=== PATIENT | male | born 1985 | race Caucasian/White ===

== ENCOUNTER 2017-12-21 20:32 | Emergency (ER) | payer OTHER ==
[~2017-12-21] VITALS: Ht 180.3 cm; Wt 106.6 kg
== END 2017-12-21 22:32 | disposition home or self-care (01) ==
LOC: ER 20:32
DX: T78.1XXA Other adverse food reactions, not elsewhere classified, initial encounter (principal); K12.1 Other forms of stomatitis

== ENCOUNTER 2017-12-22 08:45 | Emergency (ER) | payer OTHER ==
[~2017-12-22] VITALS: Ht 177.8 cm; Wt 106.6 kg
== END 2017-12-22 14:19 | disposition home or self-care (01) ==
LOC: ER 08:45
DX: T78.1XXD Other adverse food reactions, not elsewhere classified, subsequent encounter (principal); R21 Rash and other nonspecific skin eruption

== ENCOUNTER 2023-07-31 15:07 | Emergency (ER) | payer OTHER ==
[~2023-07-31] VITALS: Ht 177.8 cm; Wt 130.2 kg
[2023-07-31] MEDS ORDERED: KETOROLAC TROMETHAMINE 60 MG VIAL IM ONE (17:30)
[2023-07-31] MEDS ORDERED: ADVIL DUAL ACT1 EACH PO (18:44)
== END 2023-07-31 18:49 ==
LOC: ER 15:07
DX: S90.02XA Contusion of left ankle, initial encounter (principal); S90.32XA Contusion of left foot, initial encounter; S50.11XA Contusion of right forearm, initial encounter; S20.213A Contusion of bilateral front wall of thorax, initial encounter; S60.211A Contusion of right wrist, initial encounter; S60.221A Contusion of right hand, initial encounter; W18.39XA Other fall on same level, initial encounter; Y93.89 Activity, other specified; Y92.89 Other specified places as the place of occurrence of the external cause; Y99.8 Other external cause status

== ENCOUNTER 2024-03-19 22:59 | Emergency (ER) | payer OTHER ==
[~2024-03-19] VITALS: Ht 180.3 cm; Wt 131.5 kg
[~2024-03-19 22:59] MED LIST: ADVIL DUAL ACT1 EACH PO; DICLOFENAC POTA50 MG PO; METHOCARBAMOL500 MG PO
[2024-03-19] MEDS ORDERED: CLINDAMYCIN PHOSPHATE 150 MG/ML (600mg) IM STA (23:27)
== END 2024-03-19 23:34 | disposition home or self-care (01) ==
LOC: ER 23:01
DX: L03.113 Cellulitis of right upper limb (principal); Z91.013 Allergy to seafood

== ENCOUNTER 2024-09-10 17:23 | Emergency (ER) | payer OTHER ==
[~2024-09-10] VITALS: Ht 180.3 cm; Wt 116.6 kg
[~2024-09-10 17:23] MED LIST changes: +METHOCARBAMOL750 MG PO; +NABUMETONE750 MG PO
[2024-09-10] MEDS ORDERED: 0.9 % SODIUM CHLORIDE 1,000 ML IV STA (18:33)
[2024-09-10] MEDS ORDERED: FAMOTIDINE/PF 20 MG/2 ML VIAL IV ONE (18:45)
[2024-09-10] MEDS ORDERED: METOCLOPRAMIDE HCL 5 MG/ML VIAL IV ONE (18:45)
[2024-09-10] MEDS ORDERED: METOCLOPRAMIDE HCL 5 MG/ML VIAL ONE (20:21)
[2024-09-10] MEDS ORDERED: FAMOTIDINE/PF 20 MG/2 ML VIAL ONE (20:22)
[2024-09-10 21:20] LABS: HEMATOCRIT 45.6 % (39.0-48.0); HEMOGLOBIN 15.1 g/dL (13-16.00); MEAN CORPUSCULAR HEMOGLOBIN 25.6 pg (27.00-32.0); MEAN CORPUSCULAR HGB CONC 33.2 g/dl (32.0-36.0); RED BLOOD COUNT 5.92 M/uL (4.00-6.00); RED CELL DISTRIBUTION WIDTH 13.8 % (11.5-14.5)
[2024-09-10 21:21] LABS: PLATELET COUNT 74 K/uL (150-450)
[2024-09-10 21:40] LABS: ALBUMIN 4.2 gm/dL (3.4-5.0); BILIRUBIN TOTAL 0.8 mg/dL (0.3-1.2); CALCIUM 9.6 mg/dL (8.5-10.1); CREATININE SERUM 0.78 mg/dL (0.70-1.30); GFR 110.24; GLOBULINA 4.4 G/DL (2.4-3.5); POTASSIUM 4.18 mEq/L (3.5-5.1); TOTAL PROTEIN 8.6 gm/dL (6.4-8.2)
[2024-09-10 22:03] LABS: COVID-19 AG NEGATIVE (NEGATIVE)
[2024-09-10 22:10] LABS: INFLUENZA A AG NEGATIVE (NEGATIVE)
== END 2024-09-10 23:18 | disposition home or self-care (01) ==
LOC: ER 17:23
PROVIDERS: Emergency Medicine
DX: K52.89 Other specified noninfective gastroenteritis and colitis (principal); Z91.013 Allergy to seafood; Z20.822 Contact with and (suspected) exposure to COVID-19

== ENCOUNTER 2024-10-15 12:43 | Emergency (ER) | payer OTHER ==
[~2024-10-15] VITALS: Ht 177.8 cm; Wt 89.8 kg
[2024-10-15 13:12] VITALS: BP 138/80; O2SAT 99
[2024-10-15] MEDS ORDERED: CEFTRIAXONE SODIUM 1,000 MG VIAL IM STA (15:17)
[2024-10-15] MEDS ORDERED: CEFUROXIME500 MG PO (15:23)
[2024-10-15] MEDS ORDERED: CEFTRIAXONE SODIUM 1,000 MG VIAL ONE (16:02)
[2024-10-15] MEDS ORDERED: LIDOCAINE HCL/MPF 1% 5ML VIAL IJ ONE (16:03)
== END 2024-10-15 20:20 | disposition home or self-care (01) ==
LOC: ER 13:03
DX: L03.116 Cellulitis of left lower limb (principal); Z91.013 Allergy to seafood

== ENCOUNTER → 2024-11-19 | Emergency (ER) | payer OTHER ==
[~2024-11-19] VITALS: Ht 177.8 cm; Wt 108.0 kg
[~2024-11-19] MED LIST changes: +0.9 % SODIUM CHLORIDE 1,000 ML IV SCH; +CEFUROXIME500 MG PO; +FAMOtidine 10 MG/ML (4ML VIAL) IV ONE; +KEPPRA100 MG/1 M; +KETOROLAC TROMETHAMINE 60 MG VIAL IM ONE; +TRAMADOL HCL 50 MG TABLET PO ONE
[2024-11-19 11:27] LABS: BASO % 0.6 % (0.1-1.2); EOS # 0.20 (0.04-0.54); EOS % 1.4 % (0.7-7.0); LYMPH # 2.34 (1.18-3.74); LYMPH % 16.6 % (19.3-53.1); MEAN PLATELET VOLUME 11.80 fl (9.4-12.4); MONO # 0.78 (0.24-0.82); MONO % 5.5 % (4.7-12.5); NEUT # 10.61 (1.56-6.13); NEUT % 75.2 % (34.0-71.1); RED CELL DISTRIBUTION WIDTH 14.2 % (11.6-14.4)
[2024-11-19 11:53] LABS: INR 1.15
[2024-11-19 11:58] LABS: ALT/SGPT 37.0 U/L (12-78); AST/SGOT 47.0 U/L (15-37); BILIRUBIN TOTAL 3.13 mg/dL (0.3-1.2); BUN CREA RATIO 18.0 (7.0-25.0); CREATININE SERUM 0.99 mg/dL (0.70-1.30); GFR 83.72; GLOBULINA 4.3 G/DL (2.4-3.5); GLUCOSE FASTING 111.0 mg/dL (65-100); OSMOLALITY SERUM 288.0 MOSM/KG (275-295)
== END | disposition designated cancer center or children's hospital (05) ==
LOC: ER 08:43
PROVIDERS: Preventive Medicine Public Health & General Preventive Medicine
DX: M25.519 Pain in unspecified shoulder (principal); I82.623 Acute embolism and thrombosis of deep veins of upper extremity, bilateral; G40.89 Other seizures; Z91.013 Allergy to seafood

== ENCOUNTER 2024-12-01 22:35 | Emergency (ER) | payer OTHER ==
[~2024-12-01] VITALS: Ht 177.8 cm; Wt 104.3 kg
[~2024-12-01 22:35] MED LIST changes: -0.9 % SODIUM CHLORIDE 1,000 ML IV SCH; -FAMOtidine 10 MG/ML (4ML VIAL) IV ONE; -KETOROLAC TROMETHAMINE 60 MG VIAL IM ONE; -TRAMADOL HCL 50 MG TABLET PO ONE
[2024-12-01] MEDS ORDERED: 0.9 % SODIUM CHLORIDE 1,000 ML IV STA (23:10)
[2024-12-02 00:56] LABS: BASO % 0.2 % (0.1-1.2); EOS # 0.00 (0.04-0.54); EOS % 0.0 % (0.7-7.0); LYMPH # 0.71 (1.18-3.74); LYMPH % 4.9 % (19.3-53.1); MEAN PLATELET VOLUME 11.90 fl (9.4-12.4); MONO # 0.64 (0.24-0.82); MONO % 4.4 % (4.7-12.5); NEUT # 13.11 (1.56-6.13); NEUT % 89.9 % (34.0-71.1); RED CELL DISTRIBUTION WIDTH 13.5 % (11.6-14.4)
[2024-12-02 01:54] LABS: BUN CREA RATIO 17.0 (7.0-25.0); CREATININE SERUM 0.58 mg/dL (0.70-1.30); GFR 155.17; GLUCOSE FASTING 149.0 mg/dL (65-100); OSMOLALITY SERUM 276.0 MOSM/KG (275-295)
[2024-12-02 02:51] LABS: URINE APPEARANCE Turbid; URINE BILIRRUBIN Negative (NEGATIVE); URINE BLOOD Negative; URINE COLOR Yellow; URINE GLUCOSE Negative (NEGATIVE); URINE KETONE 15 (NEGATIVE); URINE LEUKOCYTE Negative; URINE NITRATE Negative; URINE PROTEIN 30 (NEGATIVE); URINE UROBILINOGEN 1.0 E.U./dl
[2024-12-02 02:54] LABS: URINE EPITHELIAL CELLS 5.9 uL (0.0-38.8); URINE RBC 18.3 uL (0.0-20.8); URINE WBC 7.9 uL (0.0-23.2)
[2024-12-02 03:26] LABS: URINE BACTERIA 3.5 uL (0.0-1933); URINE CAST 0.58 uL (0.0-1.40); URINE CRYSTALS MANY /HPF; URINE MUCUS SCANT; URINE SPERM FEW
[2024-12-02] MEDS ORDERED: HYOSCYAMINE SULFATE 0.125 MG TAB.SUBL ONE (03:58)
[2024-12-02] MEDS ORDERED: LACTOBACILLUS ACIDOPHILUS 1 CAP CAP PO STA (03:58)
[2024-12-02] MEDS ORDERED: LACTOBACILLUS ACIDOPHILUS 1 CAP CAP PO ONE (03:58)
[2024-12-02] MEDS ORDERED: HYOSCYAMINE SULFATE 0.125 MG TAB.SUBL SL ONE (04:00)
[2024-12-02] MEDS ORDERED: INTESTINEX680 M1 PO (04:37)
[2024-12-02] MEDS ORDERED: LEVSIN/SL0.125 MG SL (04:37)
[2024-12-02 04:42] VITALS: BP 138/72; O2SAT 98
== END 2024-12-02 04:42 ==
LOC: ER 22:35
PROVIDERS: General Practice
DX: R19.7 Diarrhea, unspecified (principal)

== ENCOUNTER 2024-12-02 10:11 | Emergency (ER) | payer OTHER ==
[~2024-12-02] VITALS: Ht 182.9 cm; Wt 90.7 kg
[~2024-12-02 10:11] MED LIST changes: +INTESTINEX680 M1 PO; +LEVSIN/SL0.125 MG SL
[2024-12-02 10:37] VITALS: BP 152/82; O2SAT 100
[2024-12-02] MEDS ORDERED: 0.9 % SODIUM CHLORIDE 1,000 ML IV SCH (10:45)
[2024-12-02] MEDS ORDERED: ONDANSETRON HCL 2 MG/ML VIAL IV ONE (10:45)
[2024-12-02] MEDS ORDERED: KETOROLAC TROMETHAMINE 30 MG VIAL IV ONE (10:45)
[2024-12-02] MEDS ORDERED: KETOROLAC TROMETHAMINE 30 MG VIAL ONE (10:48)
[2024-12-02] MEDS ORDERED: ONDANSETRON HCL 2 MG/ML VIAL ONE (10:49)
[2024-12-02 12:18] LABS: BASO % 0.3 % (0.1-1.2); EOS # 0.01 (0.04-0.54); EOS % 0.1 % (0.7-7.0); LYMPH # 0.91 (1.18-3.74); LYMPH % 5.3 % (19.3-53.1); MEAN PLATELET VOLUME 12.40 fl (9.4-12.4); MONO # 0.88 (0.24-0.82); MONO % 5.2 % (4.7-12.5); NEUT # 15.10 (1.56-6.13); NEUT % 88.4 % (34.0-71.1); RED CELL DISTRIBUTION WIDTH 13.6 % (11.6-14.4)
[2024-12-02 12:20] LABS: ALT/SGPT 21.0 U/L (12-78); AST/SGOT 24.0 U/L (15-37); BILIRUBIN TOTAL 1.78 mg/dL (0.3-1.2); BUN CREA RATIO 20.0 (7.0-25.0); CREATININE SERUM 0.66 mg/dL (0.70-1.30); GFR 133.68; GLOBULINA 4.6 G/DL (2.4-3.5); GLUCOSE FASTING 139.0 mg/dL (65-100); OSMOLALITY SERUM 276.0 MOSM/KG (275-295)
[2024-12-02] MEDS ORDERED: CEFTRIAXONE SODIUM 1,000 MG VIAL ONE (14:13)
[2024-12-02] MEDS ORDERED: CEFTRIAXONE SODIUM 1,000 MG VIAL IV ONE (14:15)
[2024-12-02 15:49] LABS: URINE APPEARANCE Clear; URINE BILIRRUBIN Negative (NEGATIVE); URINE BLOOD Negative; URINE COLOR Yellow; URINE GLUCOSE Negative (NEGATIVE); URINE KETONE Negative (NEGATIVE); URINE LEUKOCYTE Negative; URINE NITRATE Negative; URINE PROTEIN Trace (NEGATIVE); URINE UROBILINOGEN 1.0 E.U./dl
[2024-12-02 15:53] LABS: URINE BACTERIA 6.0 uL (0.0-1933); URINE EPITHELIAL CELLS 5.5 uL (0.0-38.8); URINE RBC 11.1 uL (0.0-20.8); URINE WBC 4.9 uL (0.0-23.2)
[2024-12-02 15:57] LABS: URINE CAST 0.43 uL (0.0-1.40)
== END 2024-12-02 16:48 | disposition home or self-care (01) ==
LOC: ER 10:11
PROVIDERS: General Practice
DX: R10.32 Left lower quadrant pain (principal); K80.20 Calculus of gallbladder without cholecystitis without obstruction; Z91.013 Allergy to seafood

== ENCOUNTER 2024-12-10 14:50 | Emergency (ER) | payer OTHER ==
[~2024-12-10] VITALS: Ht 177.8 cm; Wt 96.6 kg
[2024-12-10] MEDS ORDERED: GABAPENTIN300 M2 PO (15:23)
[2024-12-10] MEDS ORDERED: LEVETIRACETAM500 MG PO (15:24)
== END 2024-12-10 18:18 | disposition home or self-care (01) ==
LOC: ER 14:55
DX: Z98.890 Other specified postprocedural states (principal); M25.512 Pain in left shoulder; M25.511 Pain in right shoulder; Z91.013 Allergy to seafood

== ENCOUNTER 2025-03-11 12:16 | Inpatient (IN) | payer OTHER ==
[~2025-03-11] VITALS: Ht 177.8 cm; Wt 88.9 kg
[~2025-03-11 12:16] MED LIST changes: +CYCLOBENZAPRINE10 MG PO; +GABAPENTIN300 M2 PO; +KEPPRA500 MG PO; +LEVETIRACETAM500 MG PO; +NAPR500T14 PO
--- NOTE | 2025-03-11 13:06 | NUR ---
PTE REFIEFE VOMITOS DESDE HACE 3 VAZQUEZ SE OBSERVA SUDOROSO Y DEBIL , SE LE NATALIYA S/V Y SE UBICA EN SHARMILA.
[2025-03-11] MEDS ORDERED: ONDANSETRON HCL 2 MG/ML VIAL IV ONE (14:30)
[2025-03-11] MEDS ORDERED: KETOROLAC TROMETHAMINE 30 MG VIAL IV ONE (14:30)
[2025-03-11] MEDS ORDERED: 0.9 % SODIUM CHLORIDE 500 ML IV SCH (14:30)
[2025-03-11] MEDS ORDERED: FAMOTIDINE/PF 20 MG/2 ML VIAL IV ONE (14:30)
--- NOTE | 2025-03-11 15:59 | NUR ---
SE REALIZA LAB Y SE ADMINISTRA TX ISSAC ORDEN MEDICA BAJO MEDIDAS ASEPTICAS. SE ORIENTA PTE QUIEN REFIERE ENTENDER Y ACEPTAR
[2025-03-11 16:02] LABS: BASO % 1.0 % (0.1-1.2); EOS # 1.15 (0.04-0.54); EOS % 8.7 % (0.7-7.0); LYMPH # 3.69 (1.18-3.74); LYMPH % 27.8 % (19.3-53.1); MONO # 0.55 (0.24-0.82); MONO % 4.1 % (4.7-12.5); NEUT # 7.71 (1.56-6.13); NEUT % 58.2 % (34.0-71.1); RED CELL DISTRIBUTION WIDTH 13.5 % (11.6-14.4)
[2025-03-11 16:49] LABS: ERYTHROCYTE SEDIMENTATION RATE 45 mm/hr (0-15)
[2025-03-11 16:51] LABS: INR 1.19
[2025-03-11 16:58] LABS: ALT/SGPT 23.0 U/L (12-78); AST/SGOT 22.0 U/L (15-37); BILIRUBIN TOTAL 1.4 mg/dL (0.3-1.2); BUN CREA RATIO 14.0 (7.0-25.0); CREATININE SERUM 3.37 mg/dL (0.70-1.30); GFR 20.37; GLOBULINA 5.0 G/DL (2.4-3.5); GLUCOSE FASTING 86.0 mg/dL (65-100); OSMOLALITY SERUM 276.0 MOSM/KG (275-295)
[2025-03-11 17:29] LABS: COVID-19 AG NEGATIVE (NEGATIVE)
[2025-03-11 18:39] LABS: URINE APPEARANCE Cloudy; URINE BILIRRUBIN Small (NEGATIVE); URINE BLOOD Negative; URINE COLOR Dark Yellow; URINE GLUCOSE Negative (NEGATIVE); URINE KETONE Trace (NEGATIVE); URINE LEUKOCYTE Trace; URINE NITRATE Negative; URINE PROTEIN 30 (NEGATIVE); URINE UROBILINOGEN 1.0 E.U./dl
[2025-03-11 18:47] LABS: URINE BACTERIA 39.5 uL (0.0-1933); URINE EPITHELIAL CELLS 12.9 uL (0.0-38.8); URINE RBC 12.1 uL (0.0-20.8); URINE WBC 13.2 uL (0.0-23.2)
[2025-03-11 19:05] LABS: URINE CAST > 21.83 uL (0.0-1.40)
[2025-03-11 19:11] LABS: TYPE CELLS SQUAMOUS; URINE CRYSTALS FEW /HPF
[2025-03-11 19:19] LABS: URINE MUCUS SCANT
[2025-03-11] MEDS ORDERED: ACETAMINOPHEN 325 MG TABLET PO PRN (21:30)
[2025-03-11] MEDS ORDERED: METHYLPREDNISOLONE SOD SUCC 125 MG VIAL IV ONE (21:30)
[2025-03-11] MEDS ORDERED: ONDANSETRON HCL 4 MG in 0.9 % SODIUM CHLORIDE 50 ML IV PRN (21:30)
--- NOTE | 2025-03-11 21:50 | NUR ---
SE ORIENTA A PACIENTE ALERTA Y ORIENTADO X3 SOBRE ORDEN DE TRANSFUSION DE 10 UNIDADES DE PLAQUETAS, REFIERE ENTENDER. PACIENTE FIRMA CONSENTIMIENTO DE TRANSFUSION Y SE ADJUNTA A RECORD. SE CORROBORAN DATOS DEMOGRAFICOS CON PACIENTE. SE COLECTAN TUBOS PILOTOS, SE COMPLETA REQUISICION Y SE LLEVA A LABORATORIO DE INSTITUCION. (COPIA DE REQUISICION SANGUINEA EN RECORD.)
[2025-03-11] MEDS ORDERED: LevETIRAcetam 500 MG TAB. PO SCH (23:57)
[2025-03-12 02:03] LABS: BASO % 0.9 % (0.1-1.2); EOS # 1.19 (0.04-0.54); EOS % 8.5 % (0.7-7.0); LYMPH # 3.70 (1.18-3.74); LYMPH % 26.6 % (19.3-53.1); MONO # 0.54 (0.24-0.82); MONO % 3.9 % (4.7-12.5); NEUT # 8.32 (1.56-6.13); NEUT % 59.7 % (34.0-71.1); RED CELL DISTRIBUTION WIDTH 13.6 % (11.6-14.4)
[2025-03-12 02:16] LABS: BILIRUBIN TOTAL 1.6 mg/dL (0.3-1.2); BILIRUBIN,CONJUGATED 0.35 mg/dL (0.0-0.2); BUN CREA RATIO 13.0 (7.0-25.0); GFR 16.57; GLUCOSE FASTING 100.0 mg/dL (65-100); LDH 224.0 U/L (87-241); OSMOLALITY SERUM 275.0 MOSM/KG (275-295)
[2025-03-12 02:24] VITALS: BP 97/68; O2SAT 96
[2025-03-12 03:30] VITALS: BP 113/70; O2SAT 100
[2025-03-12 04:40] LABS: CREATININE SERUM 4.03 mg/dL (0.70-1.30)
[2025-03-12] MEDS ORDERED: CIPROFLOXACIN IN 5 % DEXTROSE 200 ML IV SCH (09:00)
[2025-03-12 09:18] VITALS: BP 100/70; O2SAT 99
[2025-03-12] MEDS ORDERED: ACETAMINOPHEN 500 MG GEL..CAP PO PRN (13:30)
[2025-03-12 18:20] VITALS: BP 110/70; O2SAT 98
[2025-03-12] MEDS ORDERED: PANTOPRAZOLE SODIUM 40 MG/VIAL VIAL IV SCH (21:00)
[2025-03-12 23:36] LABS: CHOL HDL RATIO 3.9 (0-5.0); HDL 45.0 mg/dl (40-60); LDH 209.0 U/L (87-241); LDL 115.0 mg/dl (0-130); VLDL 16.0 (0-39)
[2025-03-13 03:55] VITALS: BP 101/67; O2SAT 100
[2025-03-13] MEDS ORDERED: CIPROFLOXACIN IN 5 % DEXTROSE 200 ML IV SCH (09:00)
[2025-03-13 10:02] VITALS: BP 99/63; O2SAT 97
[2025-03-13] MEDS ORDERED: RINGERS SOLUTION,LACTATED 1,000 ML IV SCH (13:45)
[2025-03-13 14:57] LABS: BASO % 0.5 % (0.1-1.2); EOS # 0.12 (0.04-0.54); EOS % 1.0 % (0.7-7.0); LYMPH # 2.47 (1.18-3.74); LYMPH % 20.6 % (19.3-53.1); MONO # 0.63 (0.24-0.82); MONO % 5.3 % (4.7-12.5); NEUT # 8.63 (1.56-6.13); NEUT % 72.0 % (34.0-71.1); RED CELL DISTRIBUTION WIDTH 13.3 % (11.6-14.4)
[2025-03-13 15:08] LABS: INR 1.19
[2025-03-13 15:26] LABS: ALT/SGPT 21.0 U/L (12-78); AST/SGOT 19.0 U/L (15-37); BILIRUBIN TOTAL 1.23 mg/dL (0.3-1.2); BILIRUBIN,CONJUGATED 0.29 mg/dL (0.0-0.2); BUN CREA RATIO 33.0 (7.0-25.0); CREATININE SERUM 2.14 mg/dL (0.70-1.30); GFR 34.4; GLOBULINA 3.6 G/DL (2.4-3.5); GLUCOSE FASTING 110.0 mg/dL (65-100); LDH 238.0 U/L (87-241); OSMOLALITY SERUM 282.0 MOSM/KG (275-295)
[2025-03-13] MEDS ORDERED: 0.9 % SODIUM CHLORIDE 1,000 ML IV SCH (17:15)
[2025-03-13 18:04] VITALS: BP 111/75
[2025-03-14 02:24] VITALS: BP 91/60; O2SAT 100
[2025-03-14 05:00] LABS: BASO % 0.8 % (0.1-1.2); EOS # 0.17 (0.04-0.54); EOS % 2.2 % (0.7-7.0); LYMPH # 2.60 (1.18-3.74); LYMPH % 33.3 % (19.3-53.1); MEAN PLATELET VOLUME 12.20 fl (9.4-12.4); MONO # 0.32 (0.24-0.82); MONO % 4.1 % (4.7-12.5); NEUT # 4.63 (1.56-6.13); NEUT % 59.3 % (34.0-71.1); RED CELL DISTRIBUTION WIDTH 13.5 % (11.6-14.4)
[2025-03-14 05:25] LABS: ALT/SGPT 19.0 U/L (12-78); AST/SGOT 19.0 U/L (15-37); BILIRUBIN TOTAL 1.24 mg/dL (0.3-1.2); BUN CREA RATIO 36.0 (7.0-25.0); CREATININE SERUM 1.66 mg/dL (0.70-1.30); GFR 46.11; GLOBULINA 3.9 G/DL (2.4-3.5); GLUCOSE FASTING 96.0 mg/dL (65-100); OSMOLALITY SERUM 281.0 MOSM/KG (275-295)
[2025-03-14 10:17] VITALS: BP 96/64; O2SAT 99
[2025-03-14 18:03] VITALS: BP 90/55
[2025-03-14] MEDS ORDERED: CIPROFLOXACIN IN 5 % DEXTROSE 200 ML IV SCH (21:00)
[2025-03-15 02:28] VITALS: BP 94/61
[2025-03-15 06:13] LABS: BASO % 0.9 % (0.1-1.2); EOS # 0.37 (0.04-0.54); EOS % 5.0 % (0.7-7.0); LYMPH # 2.44 (1.18-3.74); LYMPH % 33.1 % (19.3-53.1); MEAN PLATELET VOLUME 13.10 fl (9.4-12.4); MONO # 0.51 (0.24-0.82); MONO % 6.9 % (4.7-12.5); NEUT # 3.96 (1.56-6.13); NEUT % 53.8 % (34.0-71.1); RED CELL DISTRIBUTION WIDTH 13.6 % (11.6-14.4)
[2025-03-15 06:44] LABS: ALT/SGPT 21.0 U/L (12-78); AST/SGOT 17.0 U/L (15-37); BILIRUBIN TOTAL 0.59 mg/dL (0.3-1.2); BUN CREA RATIO 32.0 (7.0-25.0); CREATININE SERUM 1.61 mg/dL (0.70-1.30); GFR 47.77; GLOBULINA 3.8 G/DL (2.4-3.5); GLUCOSE FASTING 107.0 mg/dL (65-100); OSMOLALITY SERUM 281.0 MOSM/KG (275-295)
[2025-03-15 08:34] VITALS: BP 102/70; O2SAT 98
[2025-03-15] MEDS ORDERED: SODIUM POLYSTYRENE SULFONATE 30G/8 TSP PO NR (14:15)
[2025-03-15 17:59] VITALS: BP 130/70
[2025-03-15] MEDS ORDERED: PANTOPRAZOLE SODIUM 40 MG TABLET.DR PO SCH (21:00)
[2025-03-16 02:24] VITALS: BP 100/67; O2SAT 97
[2025-03-16 04:23] LABS: FE 67.0 ug/dl (65-175)
[2025-03-16 07:02] LABS: ALT/SGPT 23.0 U/L (12-78); AST/SGOT 24.0 U/L (15-37); BILIRUBIN TOTAL 0.58 mg/dL (0.3-1.2); BUN CREA RATIO 31.0 (7.0-25.0); CREATININE SERUM 1.25 mg/dL (0.70-1.30); GFR 63.97; GLOBULINA 3.8 G/DL (2.4-3.5); GLUCOSE FASTING 103.0 mg/dL (65-100); OSMOLALITY SERUM 278.0 MOSM/KG (275-295)
[2025-03-16] MEDS ORDERED: HYDROCORTISONE SODIUM SUCC/PF 100 MG VIAL IV STA (07:37)
[2025-03-16] MEDS ORDERED: RINGERS SOLUTION,LACTATED 1,000 ML IV SCH (07:45)
[2025-03-16 08:11] LABS: hav igm Negative (Negative); hep b c Negative (Negative); hep b s ag Negative (Negative)
[2025-03-16 09:12] VITALS: BP 111/72; O2SAT 100
[2025-03-16 10:08] LABS: HAPTOGLOBIN 147 mg/dL (17-317)
[2025-03-16 10:08] LABS: EBV EARLY AG IGG < 9.0 U/mL (0.0-8.9)
[2025-03-16 12:04] LABS: FOLIC ACID 5.23 ng/ml (4.78-20)
[2025-03-16] MEDS ORDERED: HYDROCORTISONE SODIUM SUCC/PF 50 MG/ML ML IV SCH (14:00)
[2025-03-16] MEDS ORDERED: KEPPRA500 MG PO (14:06)
[2025-03-16] MEDS ORDERED: PANTOPRAZOLE SO40 MG PO (14:06)
[2025-03-16] MEDS ORDERED: Prednisone PO (14:15)
[2025-03-16] MEDS ORDERED: CIPRO250 MG PO (14:27)
[2025-03-16] MEDS ORDERED: METRONIDAZOLE500 MG PO (14:27)
[2025-03-16 16:11] LABS: ANTI CARDIO IGG 101 GPL U/mL (0-14); ANTI CARDIO IGM < 9 MPL U/mL (0-12)
[2025-03-18 00:10] LABS: MYCOPLASMA PNEUMONIAE IGG 1813 U/mL (0-99)
[2025-03-18 10:07] LABS: VON WILLERBRAND ACTIVITY 174 % (50-200); VON WILLERBRAND ANTIGEN 177 % (50-200)
[2025-03-18 10:07] LABS: DHEA-SULFATE 19.7 ug/dL (102.6-416.3)
[2025-03-18 14:07] LABS: ACTH 20.0 pg/mL (7.2-63.3)
[2025-03-19 14:07] LABS: beta 2 gly iga < 9 (0-25); beta 2 gly igg 78 (0-20); beta 2 gly igm < 9 (0-32)
== END 2025-03-16 16:57 | disposition home or self-care (01) | DRG 394 ==
LOC: ER 12:17 → SEC-K 21:42 → MEDJ 21:42
PROVIDERS: General Practice; Internal Medicine; Internal Medicine Infectious Disease; Internal Medicine Nephrology; ADMIT Internal Medicine; ATTEND Internal Medicine
PROC: BW21ZZZ Computerized Tomography (CT Scan) of Abdomen and Pelvis (ICD-10-PCS; principal; 2025-03-11)
PROC: CF141ZZ Planar Nuclear Medicine Imaging of Gallbladder using Technetium 99m (Tc-99m) (ICD-10-PCS; 2025-03-12)
PROC: BB24ZZZ Computerized Tomography (CT Scan) of Bilateral Lungs (ICD-10-PCS; 2025-03-13)
PROC: 6A550Z2 Pheresis of Platelets, Single (ICD-10-PCS; 2025-03-13)
PROC: BT43ZZZ Ultrasonography of Bilateral Kidneys (ICD-10-PCS; 2025-03-15)
DX: I88.0 Nonspecific mesenteric lymphadenitis (principal); D68.9 Coagulation defect, unspecified; N17.9 Acute kidney failure, unspecified; D69.3 Immune thrombocytopenic purpura; R65.10 Systemic inflammatory response syndrome (SIRS) of non-infectious origin without acute organ dysfunction; E86.9 Volume depletion, unspecified; K80.20 Calculus of gallbladder without cholecystitis without obstruction; N18.9 Chronic kidney disease, unspecified; E87.5 Hyperkalemia; Z91.013 Allergy to seafood